=== PATIENT | male | born 1965 | race Caucasian/White ===

== ENCOUNTER 2017-01-27 09:32 | Emergency (ER) | payer BC ==
[2017-01-27 09:47] VITALS: BP 143/73
[2017-01-27] MEDS ORDERED: Lidocaine 1% MPF* 2 ML VIAL INJ ONE (09:49)
[2017-01-27] MEDS ORDERED: Lidocaine 1%* 5 ML VIAL ONE (09:52)
[2017-01-27] MEDS ORDERED: Tetan/Diph/Pertus SYR(Tdap)* 0.5 ML SYR(BOOSTRIX) use SYR IM ONE (09:54)
--- NOTE | 2017-01-27 09:56 | UC ---
Laceration HPI - History Of Current Complaint Chief Complaint: UCLaceration Stated Complaint: LEFT MIDDLE FINGER LACERATION Time Seen by Provider: 01/27/17 09:45 Hx Obtained From: Patient Laceration Location: Finger - left middle finger Mechanism Of Injury: Sharp Trauma - cut with hedge trimmers Onset/Duration: Sudden Onset Severity: Moderate Aggravating Factors: Movement Hands: 1 - flap laceration Related History: Dominant Hand Right - Allergies/Home Medications Allergies/Adverse Reactions: Allergies Allergy/AdvReac Type Severity Reaction Status Date / Time No Known Allergies Allergy Verified 01/27/17 09:42 Home Medications: Home Medications Albuterol HFA INHALER* [Ventolin HFA Inhaler*] 1 - 2 puff INH Q4H PRN 01/27/17 [ History Confirmed 01/27/17] Cyanocobalamin INJ * [Vitamin B12 INJ *] 1,000 mcg IM MONTHLY 01/27/17 [History Confirmed 01/27/17] Esomeprazole(NF) [Nexium(NF)] 40 mg PO DAILY 01/27/17 [History Confirmed ] PMH/Surg Hx/FS Hx/Imm Hx Previously Healthy: No - Chronic back pain Endocrine History: Thyroid Disease Respiratory History: Asthma GI/ History: Gastroesophageal Reflux - Surgical History Surgical History: Yes Surgery Procedure, Year, and Place: Thyroidectomy 12/30,gallbladder removed . abd hernia surgeries x 6. Spinal fusion. Bariatric surgery. Hernia surgery x 5. - Family History Known Family History: Negative: Cardiac Disease, Hypertension, Diabetes - Social History Occupation: Disabled Lives: With Family Alcohol Use: None Substance Use Type: None Smoking Status (MU): Never Smoked Tobacco Have You Smoked in the Last Year: No - Immunization History Most Recent Tetanus Shot: "I ... need one." Review of Systems All Other Systems Reviewed And Are Negative: Yes Physical Exam Triage Information Reviewed: Yes Appearance: Well-Appearing, No Pain Distress, Obese Vital Signs: Initial Vital Signs Temp 98.1 F 01/27/17 09:40 Pulse 80 01/27/17 09:40 Resp 18 01/27/17 09:40 BP 143/73 01/27/17 09:40 Pulse Ox 98 01/27/17 09:40 Vital Signs Reviewed: Yes Eyes: Positive: Conjunctiva Clear Neck exam: Normal Respiratory Exam: Normal Cardiovascular Exam: Normal Musculoskeletal Exam: Normal Neurological Exam: Normal Psychological Exam: Normal Skin: Positive: Other - laceration. Laceration Repair - Laceration Repair 1 Description: Linear - pad of left 3rd finger Laceration Size After Repair: Length (cm) - 1,6 Modified For Repair: No Type Injection: Local Anesthesia Used: 1.0% Lido Cleansing Completed Via Routine Prep: Yes Irrigation With Pressure Irrigation Device: Yes Closure Material: Sutures Closure Method: Single Layer Suture Of: Skin Suture Type: Nylon - 4-0 nylon #7 running stitches 2 Description: Linear - Pad left 3rd finger Laceration Size After Repair: Length (cm) - 2.0 Modified For Repair: No Type Injection: Local Anesthesia Used: 1.0% Lido Cleansing Completed Via Routine Prep: Yes Irrigation With Pressure Irrigation Device: Yes Closure Material: Sutures Closure Method: Single Layer Suture Of: Skin Suture Type: Nylon - 4-0 nylon #8 running stitches Laceration Course/Dx - Differential Dx - Laceration/Wound Differental Diagnoses: Abrasion, Abscess, Laceration Provider Diagnoses: Laceration left 3rd finger. 3.6 cm total repair. Discharge - Discharge Plan Condition: Stable Disposition: HOME Prescriptions: Cephalexin CAP* [Keflex 500 CAP*] 500 mg PO QID #12 cap Patient Education Materials: Finger Laceration (ED), Care For Your Stitches (ED ), Cephalexin (By mouth) Additional Instructions: Return in 10 days for suture removal.
== END 2017-01-27 10:47 | disposition home or self-care (01) ==
LOC: UCCORT 09:32
DX: S61.213A Laceration without foreign body of left middle finger without damage to nail, initial encounter (principal); W29.3XXA Contact with powered garden and outdoor hand tools and machinery, initial encounter; Y92.9 Unspecified place or not applicable
CPT/HCPCS: 12002; 90471; 90715; 99212; G0463

== ENCOUNTER 2017-02-05 16:13 | Emergency (ER) | payer BC ==
[2017-02-05 16:31] VITALS: BP 145/79
--- NOTE | 2017-02-05 16:39 | UC ---
HPI Wound/Suture Re-check - HPI Summary HPI Summary: The patient comes in today for: 1. Left middle finger laceration: Onset: 9 days ago. Palliative/provocative: Nothing. Quality: No pain, itching. Region: Distal middle finger (left) Severity: 0.1/10 Time: Constant. Associated symptoms: None. Tetanus: Last Saturday. He is leaving today for a 2 month trip. * - History Of Current Complaint Chief Complaint: UCLaceration Stated Complaint: STITCHES REMOVAL Time Seen by Provider: 02/05/17 16:32 Hx Obtained From: Patient - Allergies/Home Medications Allergies/Adverse Reactions: Allergies Allergy/AdvReac Type Severity Reaction Status Date / Time No Known Allergies Allergy Verified 02/05/17 16:31 PMH/Surg Hx/FS Hx/Imm Hx Endocrine History: Thyroid Disease Respiratory History: Asthma GI/ History: Gastroesophageal Reflux - Surgical History Surgical History: Yes Surgery Procedure, Year, and Place: Thyroidectomy 12/30,gallbladder removed . abd hernia surgeries x 6. Spinal fusion. Bariatric surgery. Hernia surgery x 5. - Family History Known Family History: Negative: Cardiac Disease, Hypertension, Diabetes - Social History Occupation: Disabled - [employer], incisional hernias Alcohol Use: None Substance Use Type: None Smoking Status (MU): Never Smoked Tobacco Have You Smoked in the Last Year: No - Immunization History Most Recent Tetanus Shot: "I ... need one." Review of Systems Constitutional: Negative Skin: Negative Eyes: Negative ENT: Negative Respiratory: Negative Cardiovascular: Negative Gastrointestinal: Negative All Other Systems Reviewed And Are Negative: Yes Physical Exam Triage Information Reviewed: Yes Appearance: Well-Appearing, No Pain Distress, Well-Nourished Vital Signs: Initial Vital Signs Temp 98.1 F 02/05/17 16:26 Pulse 81 02/05/17 16:26 Resp 20 02/05/17 16:26 BP 145/79 02/05/17 16:26 Pulse Ox 96 02/05/17 16:26 Vital Signs Reviewed: Yes Eyes: Positive: Conjunctiva Clear. Negative: Discharge ENT: Positive: Hearing grossly normal. Negative: Pharyngeal erythema, Nasal congestion, Nasal drainage, TM bulging, TM dull, TM red, Tonsillar swelling, Tonsillar exudate Dental: Negative: Gross Decay/Caries @, Dental Fracture @ Neck: Positive: Supple, Nontender, No Lymphadenopathy. Negative: Nuchal Rigidity Respiratory: Positive: Lungs clear, No respiratory distress, No accessory muscle use. Negative: Accessory muscle use, Wheezing Cardiovascular: Positive: RRR, No Murmur Abdomen Description: Positive: Nontender, No Organomegaly, Soft, Other: - Vental hernias present--nontender.. Negative: Distended, Guarding Musculoskeletal: Positive: Strength Intact, ROM Intact Neurological: Positive: Alert, Muscle Tone Normal Psychological: Positive: Age Appropriate Behavior, Consolable Skin: Positive: Other - Laceration of the left middle finger--no dehiscence. No discharge or marked erythema or edema.. Negative: rashes, breakdown Procedures - Procedure Summary Procedure Summary: The patient had a running suture removed. NO sutures remained. No dehiscence. No bleeding. 5 steristrips applied with mastisol. Course/Dx - Course Course Of Treatment: Sutures removed. - Differential Dx - Laceration/Wound Provider Diagnoses: Suture removal. Discharge - Discharge Plan Condition: Stable Disposition: HOME Patient Education Materials: Stitches Removal (ED), Steristrips (ED) Referrals: Reece Alfaro MD [Primary Care Provider] - If Needed
== END 2017-02-05 16:59 | disposition home or self-care (01) ==
LOC: UCCORT 16:13
DX: S61.213D Laceration without foreign body of left middle finger without damage to nail, subsequent encounter (principal); X58.XXXD Exposure to other specified factors, subsequent encounter; Y92.9 Unspecified place or not applicable; E07.9 Disorder of thyroid, unspecified; J45.909 Unspecified asthma, uncomplicated; K21.9 Gastro-esophageal reflux disease without esophagitis; E89.0 Postprocedural hypothyroidism; Z90.49 Acquired absence of other specified parts of digestive tract; Z98.84 Bariatric surgery status